=== PATIENT | female | born 1945 | race Caucasian/White ===

== ENCOUNTER 2016-11-22 15:35 | Outpatient (CLI) | payer MEDICARE | END 2016-11-22 15:36 | disposition home or self-care (01) | DX: I10 Essential (primary) hypertension (principal); E78.5 Hyperlipidemia, unspecified; R53.83 Other fatigue ==

== ENCOUNTER 2016-12-28 07:18 | Outpatient (CLI) | payer MEDICARE | END 2016-12-28 07:19 | disposition home or self-care (01) | LOC: LAB.WCP 07:18 | PROVIDERS: ATTEND Family Medicine | DX: R82.99 Other abnormal findings in urine (principal) | CPT/HCPCS: 87086 ==

== ENCOUNTER 2017-03-23 10:08 | Outpatient (CLI) | payer MEDICARE | END 2017-03-23 10:09 | disposition home or self-care (01) | DX: Z12.31 Encounter for screening mammogram for malignant neoplasm of breast (principal) ==

== ENCOUNTER 2018-04-16 18:19 | Emergency (ER) | payer OTHER, MEDICARE ==
[2018-04-16 19:11] LABS: BILIRUBIN,URINE NEGATIVE (NEGATIVE); GLUCOSE, URINE (UA) NEGATIVE (NEGATIVE); KETONES,URINE (UA) NEGATIVE (NEGATIVE); LEUKOCYTE ESTERASE, URINE NEGATIVE (NEGATIVE); NITRITE,URINE NEGATIVE (NEGATIVE); OCCULT BLOOD,URINE NEGATIVE (NEGATIVE); PH,URINE 5.5 PH (5.0-7.5); PROTEIN,URINE NEGATIVE (NEGATIVE); UROBILINOGEN,URINE 0.2 (NORMAL) E.U./dL (NORMAL)
[2018-04-16 19:13] LABS: CLARITY,URINE CLEAR (CLEAR)
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
[2018-04-16 19:25] LABS: BASOPHILS % (AUTO) 0.7 %; EOSINOPHILS % (AUTO) 4.5 %; HGB - HEMOGLOBIN 14.4 g/dL (12.0-16.0); LYMPHOCYTES % (AUTO) 58.4 %; MEAN CORPUSCULAR HEMOGLOBIN 29.4 pg (27.0-31.0); MEAN CORPUSCULAR HGB CONC 32.7 g/dL (32.0-36.0); MEAN CORPUSCULAR VOLUME 89.9 fL (81.0-99.0); MEAN PLATELET VOLUME 7.5 fL (7.9-10.8); MONOCYTES % (AUTO) 6.4 %; PLT - PLATELET COUNT 280 10^3/uL (130-450); RED CELL DISTRIBUTION WIDTH 14.2 % (12.0-15.0); WHITE BLOOD COUNT 7.9 x10^3/uL (4.8-10.8)
[2018-04-16 19:32] LABS: ABNORMAL LYMPHS % (MANUAL) 0 %; BAND NEUTROPHILS % (MANUAL) 0 %
[2018-04-16 19:43] LABS: ALBUMIN 4.1 g/dL (3.2-5.5); ALBUMIN/GLOBULIN RATIO 1.5 (1.0-2.2); BILIRUBIN,TOTAL 0.7 mg/dL (0.2-1.0); CREATININE 0.6 mg/dL (0.4-1.0); TOTAL PROTEIN 6.8 g/dL (6.7-8.2)
--- NOTE | 2018-04-16 19:46 | CT Preliminary Report ---
Exam: CT HEAD W/O IMPRESSION: Mild chronic senescent changes. No acute intracranial abnormality seen. [facility] SITE ID: [id number]
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
[2018-04-16 20:19] VITALS: BP 125/65
[2018-04-16 20:29] LABS: BASOPHILS # (MANUAL) 0.1 10^3/uL (0-0.1); BASOPHILS % (MANUAL) 1 %; EOSINOPHILS # (MANUAL) 0.7 10^3/uL (0-0.7); LYMPHOCYTES # (MANUAL) 5.1 10^3/uL (1.5-3.5); LYMPHOCYTES % (MANUAL) 42 %; MONOCYTES # (MANUAL) 0.2 10^3/uL (0.0-1.0); NEUTROPHILS # (MANUAL) 1.9 10^3/uL (1.5-6.6); NEUTROPHILS % (MANUAL) 24 %
[2018-04-16 20:30] LABS: DIFFERENTIAL COMMENT MANUAL DIFFERENTIAL; PLATELET ESTIMATE, MANUAL NORMAL (130-450,000) (NORMAL); PLATELET MORPHOLOGY NORMAL APPEARANCE (NORMAL); RBC MORPHOLOGY (MULTIPLE) NORMAL APPEARANCE (NORMAL)
== END 2018-04-16 20:20 | disposition home or self-care (01) ==
LOC: ED 18:19
DX: R51 Headache (principal); M54.2 Cervicalgia; H92.01 Otalgia, right ear; V49.40XA Driver injured in collision with unspecified motor vehicles in traffic accident, initial encounter; E86.0 Dehydration; I10 Essential (primary) hypertension
CPT/HCPCS: 36415; 70450; 80053; 81001; 81003; 83690; 85025; 87086; 99283

== ENCOUNTER 2018-08-22 10:07 | Outpatient (CLI) | payer MEDICARE ==
--- NOTE | 2018-08-26 15:59 | Mammography Report ---
Reason: MAMMO SCREENING Procedure Date: 08/22/2018 Accession Number: [id number] / [id number] Procedure: MGN - Screening Mammo Dig Bilat CPT Code: FULL RESULT: EXAM: Screening Mammo Dig Bilat DATE: 08/22/2018 10:29 AM CLINICAL HISTORY: 73-year-old female presents for screening mammogram. TECHNIQUE: Bilateral CC and MLO views were obtained. COMPARISON: 03/23/2017, 02/05/2015, 01/25/2015, 11/10/2013. FINDINGS: The breasts demonstrate heterogeneously dense fibroglandular parenchyma bilaterally. No suspicious masses, clustered microcalcifications, or regions of architectural distortion are identified. IMPRESSION: Negative examination RECOMMENDATION: Routine annual screening unless otherwise clinically indicated. BIRADS CATEGORY 1: Negative STANDARD QUALIFYING STATEMENTS: 1. This examination was reviewed with the aid of Computer-Aided Detection (CAD). 2. A negative or benign imaging report should not delay biopsy if clinically suspicious findings are present. Consider surgical consultation if warrented. More than 5% of cancers are not identified by imaging. 3. Dense breasts may obscure an underlying neoplasm. 4. This examination was reviewed without the aid of 3D breast imaging (tomosynthesis).
== END 2018-08-22 10:08 | disposition home or self-care (01) ==
LOC: DI.N 10:07
DX: Z12.31 Encounter for screening mammogram for malignant neoplasm of breast (principal)
CPT/HCPCS: 77067

== ENCOUNTER 2019-06-17 08:29 | Outpatient (CLI) | payer MEDICARE ==
--- NOTE | 2019-06-18 04:26 | Ultrasound Report ---
Reason: ACUTE PELVIC PAIN, POSTMENOPAUSAL BLEEDING Procedure Date: 06/17/2019 Accession Number: [id number] / [id number] Procedure: US - Pelvic w/Transvaginal CPT Code: FULL RESULT: EXAM: PELVIC ULTRASOUND EXAM DATE: 06/17/2019 09:57 AM. CLINICAL HISTORY: ACUTE PELVIC PAIN, POSTMENOPAUSAL BLEEDING. COMPARISON: None. TECHNIQUE: Realtime transabdominal pelvic scan performed to identify the uterus and adnexa and as an overview of other pelvic structures, followed by transvaginal scan to provide greater detail of the uterus and adnexa, with static image documentation. FINDINGS: Uterus: 5.9 x 3.7 x 4.2 cm, volume 49.9 cc. Anteverted position. Heterogeneous uterus with anterior fibroid measuring 1.3 x 1.0 x 1.9 cm. Masses: None. Endometrium: 10 mm. Thickened for age. Cervix: Unremarkable. Right Ovary: 2.4 x 1.6 x 1.1 cm, volume 2.2 cc. Normal echotexture and blood flow. Left Ovary: 2.4 x 2.0 x 1.4 cm, volume 3.5 cc. Normal echotexture and blood flow. Free Fluid: No significant free fluid evident on provided images. Other: None. IMPRESSION: 1. Thickened endometrium measuring approximately 10 mm. In the setting of postmenopausal bleeding, endometrial hyperplasia or carcinoma cannot be excluded. Recommend further workup. 2. Heterogeneous uterus with fibroid measuring 1.9 cm. 3. Unremarkable ovaries. [facility]
== END 2019-06-17 08:30 | disposition home or self-care (01) ==
LOC: DI 08:29
PROVIDERS: ATTEND Nurse Practitioner Obstetrics & Gynecology
DX: N95.0 Postmenopausal bleeding (principal); R10.2 Pelvic and perineal pain; D25.9 Leiomyoma of uterus, unspecified; R93.89 Abnormal findings on diagnostic imaging of other specified body structures
CPT/HCPCS: 76830; 76856

== ENCOUNTER 2019-07-07 08:00 | Outpatient (CLI) | payer MEDICARE | END 2019-07-07 23:59 | disposition home or self-care (01) | LOC: LAB.R 08:00 | PROVIDERS: ATTEND Family Medicine | DX: R31.9 Hematuria, unspecified (principal) | CPT/HCPCS: 87086 ==

== ENCOUNTER 2019-07-23 13:06 | Outpatient (CLI) | payer MEDICARE ==
--- NOTE | 2019-07-28 12:28 | Ultrasound Report ---
Reason: SUBCUTANEOUS NODULE Procedure Date: 07/23/2019 Accession Number: [id number] / [id number] Procedure: US - Ext Limited Non Vascular CPT Code: FULL RESULT: EXAM: RIGHT UPPER AND LOWER EXTREMITY ULTRASOUND - LIMITED EXAM DATE: 07/23/2019 01:39 PM. CLINICAL HISTORY: SUBCUTANEOUS NODULES. COMPARISON: None. TECHNIQUE: Real-time scanning was performed with static images obtained. FINDINGS: 5 nodules are scanned: 1. Right medial forearm: 1.3 x 0.6 x 1.8 cm isoechoic well-circumscribed avascular subcutaneous nodule, likely a lipoma. 2. Right superior lateral thigh: 1 x 0.7 x 0.9 cm isoechoic to slightly hypoechoic indistinct avascular nodule. 3. Right superior medial thigh: 2 x 0.8 x 1.3 cm isoechoic, avascular, fairly well-circumscribed superficial nodule. 4. Right Inferior lateral thigh 1.5 x 1.2 x 2 cm heterogeneous predominantly isoechoic, avascular, fairly well-circumscribed superficial nodule. 5. Right inferior medial thigh 0.8 x 0.8 x 1.5 cm isoechoic avascular slightly indistinct superficial nodule. IMPRESSION: Multiple nodules in the right forearm and thigh are of grossly similar ultrasound appearance. 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 Suggest clinical follow-up. [facility]
== END 2019-07-23 13:07 | disposition home or self-care (01) ==
LOC: DI 13:06
PROVIDERS: ATTEND Family Medicine
DX: R22.31 Localized swelling, mass and lump, right upper limb (principal); R22.41 Localized swelling, mass and lump, right lower limb
CPT/HCPCS: 76882

== ENCOUNTER 2019-10-13 11:20 | Outpatient (CLI) | payer MEDICARE ==
--- NOTE | 2019-10-13 12:35 | Mammography Report ---
Reason: ROUTINE MAMMO Procedure Date: 10/13/2019 Accession Number: [id number] / [id number] Procedure: MGN - Screening Mammo Dig Bilat CPT Code: Final Report FULL RESULT: EXAM: Screening Mammo Dig Bilat DATE: 10/13/2019 11:52 AM CLINICAL HISTORY: The patient is an asymptomatic 74-year-old female. Second degree family history of breast cancer. TECHNIQUE: (B) - Bilateral CC and MLO views were obtained. COMPARISON: 08/22/2018, 03/23/2017, 02/05/2015 and 01/25/2015 PARENCHYMAL PATTERN: (D) - The breasts demonstrate heterogeneously dense fibroglandular parenchyma bilaterally. FINDINGS: The pattern of asymmetry is stable given positional variation. There are no suspicious masses, calcifications, or areas of distortion. IMPRESSION: Negative examination. BI-RADS category 1. RECOMMENDATION: (ANNUAL) - Recommend routine annual screening mammography. BI-RADS CATEGORY: (1) - Negative. STANDARD QUALIFYING STATEMENTS: 1. This examination was not reviewed with the aid of Computer-Aided Detection (CAD). 2. A negative or benign imaging report should not preclude biopsy if clinically suspicious findings are present. 3. Dense breasts may obscure an underlying neoplasm. 4. This examination was reviewed the aid of 3D breast imaging (tomosynthesis).
== END 2019-10-13 11:21 | disposition home or self-care (01) ==
LOC: DI.N 11:20
DX: Z12.31 Encounter for screening mammogram for malignant neoplasm of breast (principal); Z80.3 Family history of malignant neoplasm of breast
CPT/HCPCS: 77067

== ENCOUNTER 2019-11-22 08:17 | Outpatient (CLI) | payer MEDICARE ==
--- NOTE | 2019-11-24 01:35 | Ultrasound Report ---
Reason: POSTMENOPAUSAL BLEEDING Procedure Date: 11/22/2019 Accession Number: [id number] / [id number] Procedure: US - Pelvic w/Transvaginal CPT Code: Final Report FULL RESULT: EXAM: PELVIC ULTRASOUND EXAM DATE: 11/22/2019 09:10 AM. CLINICAL HISTORY: POSTMENOPAUSAL BLEEDING. COMPARISON: PELVIC W/TRANSVAGINAL 06/17/2019 8:50 AM. TECHNIQUE: Realtime transabdominal pelvic scan performed to identify the uterus and adnexa and as an overview of other pelvic structures, followed by transvaginal scan to provide greater detail of the uterus and adnexa, with static image documentation. FINDINGS: Uterus: 5.5 x 3.2 x 4.8 cm, volume 42.3 cc. Anteverted position. Heterogeneous and echotexture. Masses: Intermural fibroid measuring 0.6 x 1.0 x 1.4 cm located in the anterior uterus. Endometrium: 7 mm. Normal. Cervix: Unremarkable. Right Ovary: 1.9 x 1.9 x 1.5 cm, volume 2.8 cc. Normal echotexture and blood flow. Left Ovary: 1.9 x 1.3 x 1.6 cm, volume 1.9 cc. Normal echotexture and blood flow. Free Fluid: None. Other: None. IMPRESSION: Thickened endometrium. Endometrial biopsy should be considered. Uterine fibroid. [facility]
== END 2019-11-22 08:18 | disposition home or self-care (01) ==
LOC: DI 08:17
PROVIDERS: ATTEND Nurse Practitioner Obstetrics & Gynecology
DX: D25.1 Intramural leiomyoma of uterus (principal); R93.89 Abnormal findings on diagnostic imaging of other specified body structures
CPT/HCPCS: 76830; 76856

== ENCOUNTER 2019-12-26 08:00 | Outpatient (CLI) | payer MEDICARE ==
[2019-12-26 12:44] LABS: BASOPHILS % (AUTO) 0.5 %; EOSINOPHILS # (AUTO) 0.3 10^3/uL (0.0-0.7); EOSINOPHILS % (AUTO) 4.6 %; HGB - HEMOGLOBIN 15.2 g/dL (12.0-16.0); LYMPHOCYTES # (AUTO) 3.2 10^3/uL (1.5-3.5); LYMPHOCYTES % (AUTO) 55.8 %; MEAN CORPUSCULAR HEMOGLOBIN 29.4 pg (27.0-31.0); MEAN CORPUSCULAR HGB CONC 32.1 g/dL (32.0-36.0); MEAN CORPUSCULAR VOLUME 91.7 fL (81.0-99.0); MEAN PLATELET VOLUME 9.9 fL (7.9-10.8); MONOCYTES # (AUTO) 0.5 10^3/uL (0.0-1.0); MONOCYTES % (AUTO) 7.9 %; NEUTROPHILS # (AUTO) 1.8 10^3/uL (1.5-6.6); NEUTROPHILS % (AUTO) 30.9 %; PLT - PLATELET COUNT 286 10^3/uL (130-450); RED BLOOD COUNT 5.17 10^6/uL (4.20-5.40); RED CELL DISTRIBUTION WIDTH 13.8 % (12.0-15.0); WHITE BLOOD COUNT 5.8 x10^3/uL (4.8-10.8)
[2019-12-26 13:05] LABS: ALBUMIN/GLOBULIN RATIO 1.4 (1.0-2.2); BILIRUBIN,TOTAL 0.7 mg/dL (0.2-1.0); CREATININE 0.7 mg/dL (0.4-1.0); TOTAL PROTEIN 6.9 g/dL (6.7-8.2)
== END 2019-12-26 23:59 | disposition home or self-care (01) ==
LOC: LAB.WCP 08:00
PROVIDERS: ATTEND Family Medicine
DX: R10.31 Right lower quadrant pain (principal)
CPT/HCPCS: 36415; 80053; 85025

== ENCOUNTER 2019-12-30 11:50 | Outpatient (CLI) | payer MEDICARE ==
[2019-12-30] MEDS ORDERED: IOVERSOL 320 100 ML VIAL IVP ONE ×2 (12:04→13:17)
[2019-12-30] MEDS ORDERED: IOVERSOL 320 50 ML VIAL ONE (12:04)
[2019-12-30] MEDS ORDERED: IOVERSOL 320 50 ML VIAL PO ONE (13:17)
--- NOTE | 2019-12-31 11:00 | CT Report ---
Reason: RLQ ABD PAIN Procedure Date: 12/30/2019 Accession Number: [id number] / [id number] Procedure: CT - Abdomen/Pelvis W CPT Code: Final Report FULL RESULT: EXAM: CT ABDOMEN AND PELVIS EXAM DATE: 12/30/2019 01:10 PM. CLINICAL HISTORY: RLQ ABD PAIN. COMPARISONS: PELVIC W/TRANSVAGINAL 11/22/2019 8:32 AM PELVIS W/ 02/18/2016 9:30 AM ABD 04/08/2010 8:12 AM. TECHNIQUE: Routine helical CT imaging was performed through the abdomen and pelvis. IV contrast: 100 cc of Optiray 320. Enteric contrast: Yes. Reconstructions: Coronal and sagittal. In accordance with CT protocol optimization, one or more of the following dose reduction techniques were utilized for this exam: automated exposure control, adjustment of mA and/or KV based on patient size, or use of iterative reconstructive technique. FINDINGS: Lung Bases: Dependent atelectasis. No pleural or pericardial effusion. Small incidental hiatal hernia. Liver: No solid liver mass or intrahepatic bile duct dilation. Multiple low-density liver cysts scattered throughout both lobes. Portal vein is patent. No intrahepatic bile duct dilation. Gallbladder/Bile Ducts: Unremarkable. Spleen: Normal. Pancreas: Normal. Adrenal Glands: Normal. Kidneys: No mass, stones or hydronephrosis. Exophytic 2.1 cm inferior left renal cyst. Peritoneal Cavity/Bowel: Normal. No free fluid, free air or adenopathy. No masses or acute inflammatory process. There are multiple diverticula seen which most severely affect the sigmoid colon. No wall thickening or adjacent inflammation seen. No obstruction noted. The appendix is well visualized and normal. Remaining stomach, small bowel and large bowel are normal. Pelvic Organs: Normal. The bladder and visualized pelvic organs are within normal limits. Vasculature: Patchy atheromatous plaques are present in the abdominal aorta and branch vessels. No aneurysm. Normal IVC. Bones: No significant abnormality. Other: None. IMPRESSION: 1. Diverticulosis. No inflammation to suggest acute diverticulitis. 2. Normal appendix. [facility]
== END 2019-12-30 11:51 | disposition home or self-care (01) ==
LOC: DI 11:50
PROVIDERS: ATTEND Family Medicine
DX: K57.30 Diverticulosis of large intestine without perforation or abscess without bleeding (principal); R10.31 Right lower quadrant pain
CPT/HCPCS: 74177; Q9967

== ENCOUNTER 2020-01-06 16:24 | Outpatient (CLI) | payer MEDICARE ==
[2020-01-06 16:57] LABS: BASOPHILS % (AUTO) 0.6 %; EOSINOPHILS # (AUTO) 0.2 10^3/uL (0.0-0.7); EOSINOPHILS % (AUTO) 3.3 %; HGB - HEMOGLOBIN 14.3 g/dL (12.0-16.0); LYMPHOCYTES # (AUTO) 3.4 10^3/uL (1.5-3.5); LYMPHOCYTES % (AUTO) 52.9 %; MEAN CORPUSCULAR HEMOGLOBIN 30.9 pg (27.0-31.0); MEAN CORPUSCULAR HGB CONC 33.2 g/dL (32.0-36.0); MEAN CORPUSCULAR VOLUME 93.1 fL (81.0-99.0); MEAN PLATELET VOLUME 9.9 fL (7.9-10.8); MONOCYTES # (AUTO) 0.4 10^3/uL (0.0-1.0); MONOCYTES % (AUTO) 6.6 %; NEUTROPHILS # (AUTO) 2.3 10^3/uL (1.5-6.6); NEUTROPHILS % (AUTO) 36.4 %; PLT - PLATELET COUNT 277 10^3/uL (130-450); RED BLOOD COUNT 4.63 10^6/uL (4.20-5.40); RED CELL DISTRIBUTION WIDTH 13.7 % (12.0-15.0); WHITE BLOOD COUNT 6.4 x10^3/uL (4.8-10.8)
[2020-01-06 17:16] LABS: ALBUMIN/GLOBULIN RATIO 1.5 (1.0-2.2); BILIRUBIN,TOTAL 0.4 mg/dL (0.2-1.0); CALCIUM 10.2 mg/dL (8.5-10.3); CREATININE 0.7 mg/dL (0.4-1.0); TOTAL PROTEIN 6.7 g/dL (6.7-8.2)
== END 2020-01-06 16:25 | disposition home or self-care (01) ==
LOC: LAB 16:24
PROVIDERS: ATTEND Obstetrics & Gynecology
DX: Z01.812 Encounter for preprocedural laboratory examination (principal); N95.0 Postmenopausal bleeding; N85.00 Endometrial hyperplasia, unspecified
CPT/HCPCS: 36415; 80053; 85025; 86850; 86900; 86901

== ENCOUNTER 2020-01-07 10:55 | Day surgery (SDC) | payer MEDICARE ==
[~2020-01-07 10:55] MED LIST: ACETAMINOPHEN 1,000 MG/100 ML 100 ML IV ONE; CEFAZOLIN SODIUM IN 0.9 % NACL 2 GM/100 ML BAG IV ONE; CELECOXIB 100 MG CAPSULE PO ONE
[2020-01-07] MEDS ORDERED: fentaNYL 100 MCG/2 ML VIAL IVP ONE (10:56)
[2020-01-07] MEDS ORDERED: PROPOFOL 200 MG/20 ML VIAL IVP ONE (10:56)
[2020-01-07] MEDS ORDERED: LIDOCAINE-MPF 2% 5 ML VIAL IM ONE (10:56)
[2020-01-07] MEDS ORDERED: LACTATED RINGERS 1,000 ML IV ONE ×2 (10:59→13:40)
--- NOTE | 2020-01-07 11:35 | ANESTHESIA ---
Pre-Anesthesia VS, & Labs - Diagnosis Post menopausal bleeding - Procedure Myosure D and C Vital Signs: Temp Pulse Resp BP Pulse Ox 36.7 C 66 66 H 136/77 H 98 01/07/20 11:06 01/07/20 11:06 01/07/20 11:06 01/07/20 11:06 01/07/20 11:06 Height 5 ft 2 in Weight (kg) 75 kg Body Mass Index 31.6 - NPO >8 hours (4 oz water at 0900) - Is Patient ?: No - Lab Results Lab results reviewed: Yes Home Medications and Allergies Home Medications: Ambulatory Orders [place] Tablet 1 tab PO DAILY 01/06/20 Cholecalciferol (Vitamin D3) [Vitamin D3] 1,000 unit PO DAILY 01/06/20 Flavomax 1 tab PO DAILY 01/06/20 Nutriferon 1 tab PO DAILY 01/06/20 hydroCHLOROthiazide [Hydrochlorothiazide] 25 mg PO DAILY 04/29/14 Losartan [Cozaar] 50 mg ORAL DAILY 02/22/15 Metoprolol Succinate 50 mg ORAL DAILY 02/22/15 ALPRAZolam [Alprazolam] 0.25 - 0.5 mg PO DAILY 10/11/18 Ascorbic Acid [Vitamin C] 1,000 mg PO DAILY 10/11/18 Calcium Carbonate [Calcium] 1,200 mg PO DAILY 10/11/18 Lecithin, Soy [Lecithin] 1 tab PO DAILY 10/11/18 Magnesium Oxide [Magnesium] 400 mg PO DAILY 10/11/18 Multivit with Calcium,Iron,Min [Multiple Vitamins For Women] 1 tab PO DAILY 10/11/18 [place]-3S/Dha/Epa/Fish Oil [Fish Oil 1,200 mg Softgel] 1 cap PO DAILY 10/11/18 Vitamin B Complex 1 tab PO DAILY 10/11/18 [place] Tablet 1 tab PO DAILY 01/06/20 Cholecalciferol (Vitamin D3) [Vitamin D3] 1,000 unit PO DAILY 01/06/20 Flavomax 1 tab PO DAILY 01/06/20 Nutriferon 1 tab PO DAILY 01/06/20 Allergies/Adverse Reactions: Allergies Allergy/AdvReac Type Severity Reaction Status Date / Time aspirin AdvReac gastric Verified 01/06/20 16:16 distress Anes History & Medical History - Anesthetic History Anesthesia Complications: reports: No previous complications Family history of Anesthesia Complications: Denies Family history of Malignant Hyperthermia: Denies - Medical History Cardiovascular: reports: Hypertension, Arrhythmia Pulmonary: reports: None Gastrointestinal: reports: None Urinary: reports: Incontinence, Frequency Neuro: reports: None Musculoskeletal: reports: None Endocrine/Autoimmune: reports: None Blood Disorders: reports: None Skin: reports: None Smoking Status: Never smoker Psychosocial: reports: No issues indicated - Surgical History General: Colonoscopy Exam General: Alert, Oriented x3, Cooperative Dental: WNL, TMJ Mouth Opening: Greater than 4 Fingerbreadths Neck Mobility: Reduced (Gets dizzy when turns head, history of left arm numbness (periodically)) Mallampati classification: I, II Thyromental Distance: 4-6 cm Respiratory: Lungs clear Cardiovascular: Regular rate Neurological: Normal speech Mental/Cognitive Status: Alert/Oriented X3 Cognitive Status: Within normal limits Plan Anesthesia Type: General Consent for Procedure(s) Verified and Reviewed: Yes Code Status: Attempt Resuscitation ASA classification: 2-Mild systemic disease Is this case an emergency?: No
[2020-01-07] MEDS ORDERED: BUPIVACAINE 0.25% PF 10 ML VIAL ONE (11:48)
[2020-01-07] MEDS ORDERED: EPINEPHrine 1 MG/ML AMP ONE (11:49)
[2020-01-07] MEDS ORDERED: BUPIVACAINE 0.5% PF 30 ML VIAL ONE (12:17)
[2020-01-07] MEDS ORDERED: LIDOCAINE 1%-EPI 1:100000 20 ML MDV ONE (12:17)
[2020-01-07] MEDS ORDERED: LORazepam 2 MG/ML VIAL IVP PRN (13:46)
[2020-01-07] MEDS ORDERED: oxyCODONE 5 MG TABLET PO PRN (13:46)
[2020-01-07] MEDS ORDERED: ONDANSETRON 4 MG/2 ML VIAL IVP PRN (13:46)
--- NOTE | 2020-01-07 13:50 | OPERATIVE REPORT ---
Operative Report - General Procedure Date: 01/07/20 Planned Procedure: HYSTERSCOPY WITH D&C Pre-Op Diagnosis: POST MENOPAUSEL BLEEDING Procedure Performed: HYSTERSCOPY WITH D&C Post Op Diagnosis: POST MENOPAUSEL BLEEDING - Procedure Note Primary Surgeon: Ehsan Gerber MD Anesthesia Provider: Cralos Gatica CRNA Anesthesia Technique: General LMA Pathology: Endometrial polyp with endometrial currettings IV Fluids (mL): 600 Estimated Blood Loss (mL): 5 Findings: endometrila polyp sounded to 7 cm
[2020-01-07] MEDS ORDERED: oxyCODONE 5 MG TABLET ONE (14:17)
[2020-01-07 14:51] VITALS: BP 102/88
--- NOTE | 2020-01-07 18:15 | OPERATIVE REPORT ---
DATE OF SERVICE: 01/07/2020 Physician: Ehsan Worrell MD PREOPERATIVE DIAGNOSES: Postmenopausal bleeding with thickened endometrium. POSTOPERATIVE DIAGNOSES: Postoperative bleeding with endometrial polyp. PROCEDURE PERFORMED: Hysteroscopy with dilatation and curettage. SURGEON: Ehsan Worrell MD ANESTHESIA: Zhanna Sosa CRNA ANESTHETIC: General via LMA with IV sedation and paracervical block. IV FLUIDS: 600 mL. ESTIMATED BLOOD LOSS: Less than 5 mL. FINDINGS: Upon entering the endometrial cavity, there was evidence of a polyp, which was attached to the wall. It was smooth without evidence of any extra vascularity. The tubes were visualized bilaterally at this time. Uterus sounded to 7 cm and the cervix was then dilated up to 7 mm. PROCEDURE: Following adequate spinal anesthesia, the patient was placed in dorsal lithotomy position in Avni stirrups. At this point, a pelvic examination was performed, which revealed a uterus which appeared to be anterior in orientation. She was then prepped and draped in the usual fashion. A timeout was performed in which concerns were addressed. At this point, a speculum was placed in the vagina. The cervix was visualized, grasped with a single-tooth tenaculum posteriorly and then regrasped anteriorly with a single- tooth tenaculum. The uterosacral ligaments injected with 0.25% Marcaine with 0.5% lidocaine with epinephrine, 20 mL bilaterally. The cervix was then dilated up to 7 mm progressively and the uterus was sounded to 7 cm. A video hysteroscope was introduced, at which time both cornua were visualized as well as an endometrial polyp. This was resected utilizing the MyoSure LITE. There was minimal bleeding. The entire endometrial cavity was sampled in its entirety. At this point, repeat photographs were performed, at which time there was an empty endometrial cavity. The hysteroscope was removed. The deficit of fluid was minimal. The cervix was released from the single-tooth tenaculum. There was no further bleeding noted at this time. The patient tolerated the procedure well and was taken to recovery in stable condition. Sponge and needle counts were correct. TD: 01/07/2020 14:02 MTDD
== END 2020-01-07 10:56 | disposition home or self-care (01) ==
LOC: SDS 10:55
PROVIDERS: ATTEND Obstetrics & Gynecology
PROC: 0UDB8ZX Extraction of Endometrium, Via Natural or Artificial Opening Endoscopic, Diagnostic (ICD-10-PCS; 2020-01-07)
PROC: 0UB98ZZ Excision of Uterus, Via Natural or Artificial Opening Endoscopic (ICD-10-PCS; principal; 2020-01-07 12:30)
DX: N95.0 Postmenopausal bleeding (principal); R93.89 Abnormal findings on diagnostic imaging of other specified body structures; I10 Essential (primary) hypertension; I49.9 Cardiac arrhythmia, unspecified; E78.5 Hyperlipidemia, unspecified; F41.9 Anxiety disorder, unspecified
CPT/HCPCS: 58558; A9270; J0131; J0690; J7120

== ENCOUNTER 2021-02-16 09:15 | Outpatient (CLI) | payer MEDICARE ==
[2021-02-16 12:21] LABS: BASOPHILS % (AUTO) 0.8 %; EOSINOPHILS # (AUTO) 0.3 10^3/uL (0.0-0.7); EOSINOPHILS % (AUTO) 5.6 %; HCT - HEMATOCRIT 45.5 % (37.0-47.0); HGB - HEMOGLOBIN 15.2 g/dL (12.0-16.0); LYMPHOCYTES # (AUTO) 2.8 10^3/uL (1.5-3.5); MEAN CORPUSCULAR HEMOGLOBIN 31.2 pg (27.0-31.0); MEAN CORPUSCULAR HGB CONC 33.4 g/dL (32.0-36.0); MEAN CORPUSCULAR VOLUME 93.4 fL (81.0-99.0); MONOCYTES # (AUTO) 0.4 10^3/uL (0.0-1.0); MONOCYTES % (AUTO) 7.8 %; NEUTROPHILS # (AUTO) 1.6 10^3/uL (1.5-6.6); NEUTROPHILS % (AUTO) 31.6 %; PLT - PLATELET COUNT 268 10^3/uL (130-450); RED BLOOD COUNT 4.87 10^6/uL (4.20-5.40); WHITE BLOOD COUNT 5.2 x10^3/uL (4.8-10.8)
[2021-02-16 12:48] LABS: ALBUMIN 4.1 g/dL (3.2-5.5); ALBUMIN/GLOBULIN RATIO 1.5 (1.0-2.2); ALKALINE PHOSPHATASE 81 IU/L (42-121); ALT ALANINE AMINOTRANSFERASE 20 IU/L (10-60); AST ASPARTATE AMINOTRANSFERASE 21 IU/L (10-42); BILIRUBIN,TOTAL 0.8 mg/dL (0.2-1.0); BUN - BLOOD UREA NITROGEN 23 mg/dL (6-20); CALCIUM 10.5 mg/dL (8.5-10.3); CARBON DIOXIDE - CO2 32 mmol/L (21-32); CHLORIDE 103 mmol/L (101-111); CHOL/HDL RATIO 3.4 (<4.4); CHOLESTEROL 255 mg/dL; CREATININE 0.7 mg/dL (0.4-1.0); GFR - MDRD 82 (>89); GLUCOSE 104 mg/dL (70-100); HDL CHOLESTEROL 74 mg/dL; LDL CHOLESTEROL,CALCULATED 161 mg/dL; LDL/HDL RATIO 2.2 (<4.4); LIPASE 51 U/L (22-51); POTASSIUM 3.7 mmol/L (3.5-5.0); SODIUM 142 mmol/L (135-145); TOTAL PROTEIN 6.9 g/dL (6.7-8.2); TRIGLYCERIDES 102 mg/dL; VLDL CHOLESTEROL 20 mg/dL
== END 2021-02-16 23:59 | disposition home or self-care (01) ==
LOC: LAB.WCP 09:15
PROVIDERS: ATTEND Family Medicine
DX: E78.5 Hyperlipidemia, unspecified (principal); K29.70 Gastritis, unspecified, without bleeding; E83.52 Hypercalcemia; R07.89 Other chest pain
CPT/HCPCS: 36415; 80053; 80061; 83690; 83721; 83970; 84484; 85025

== ENCOUNTER 2021-02-21 11:00 | Outpatient (CLI) | payer MEDICARE ==
[2021-02-21 20:09] LABS: H. PYLORIS ANTIGEN STL NEGATIVE (Negative)
== END 2021-02-21 23:59 | disposition home or self-care (01) ==
LOC: LAB.R 11:00
PROVIDERS: ATTEND Family Medicine
DX: K29.70 Gastritis, unspecified, without bleeding (principal)
CPT/HCPCS: 87338

== ENCOUNTER 2021-03-01 08:24 | Outpatient (CLI) | payer MEDICARE, OTHER ==
--- NOTE | 2021-03-02 13:22 | Mammography Report ---
BILATERAL DIGITAL SCREENING MAMMOGRAM 3D/2D: 03/01/2021 CLINICAL: Family history of breast cancer. Routine screening. Comparison is made to exams dated: 10/13/2019 mammogram, 08/22/2018 mammogram, and 03/23/2017 mammogram - [facility]. The tissue of both breasts is heterogeneously dense. This may lower the sensitivity of mammography. No significant masses, calcifications, or other findings are seen in either breast. There has been no significant interval change. IMPRESSION: NEGATIVE There is no mammographic evidence of malignancy. A 1 year screening mammogram is recommended. This exam was interpreted at Station ID: [id number]. NOTE: For mammograms, a report in lay terms will be sent to the patient. Approximately 15% of breast malignancies will not be visualized mammographically. In the management of a palpable breast mass, a negative mammogram must not discourage biopsy of a clinically suspicious lesion. Electronically Signed By: Ko Blanco M.D. ar/penrad:03/01/2021 09:28:34 ACR BI-RADS Category 1: Negative 3341F PARENCHYMAL PATTERN: (D) - The breast(s) demonstrate(s) heterogeneously dense fibroglandular parrey sena. BI-RADS CATEGORY: (1) - 1 RECOMMENDATION: (ANNUAL) - Recommend routine annual screening mammography. [id number] 1 year screening LATERALITY: (B)
== END 2021-03-01 08:25 | disposition home or self-care (01) ==
LOC: DI.N 08:24
DX: Z12.31 Encounter for screening mammogram for malignant neoplasm of breast (principal); Z80.3 Family history of malignant neoplasm of breast

== ENCOUNTER 2021-05-30 12:33 | Outpatient (CLI) | payer MEDICARE, OTHER ==
--- NOTE | 2021-05-30 15:24 | XRAY Report ---
PROCEDURE: Wrist 3 View RT INDICATIONS: TENDONITIS OF R WRIST TECHNIQUE: 3 views of the wrist were acquired. COMPARISON: None FINDINGS: Bones: No fractures or dislocations. Possible erosion in the base of the fifth metacarpal. Mild firs t CMC joint osteoarthritis. Soft tissues: No suspicious soft tissue calcifications. IMPRESSION: Possible osseous erosion involving the base of the fifth metacarpal. Recommend plain film radiographs of the right hand and/or MRI of the right wrist for further evaluation. Reviewed by: Chantell Wills MD, PhD on 05/30/2021 3:22 PM PDT Approved by: Chantell Wills MD, PhD on 05/30/2021 3:22 PM PDT Station ID: [id number]
== END 2021-05-30 23:59 | disposition home or self-care (01) ==
LOC: DI.N 12:33
PROVIDERS: ATTEND Physician Assistant Medical
DX: M67.833 Other specified disorders of tendon, right wrist (principal); R93.6 Abnormal findings on diagnostic imaging of limbs

== ENCOUNTER 2021-05-31 11:34 | Outpatient (CLI) | payer MEDICARE, OTHER ==
--- NOTE | 2021-05-31 18:31 | XRAY Report ---
PROCEDURE: Hand 2 View RT INDICATIONS: TENDONITIS OF R WRIST, 5TH METACARPAL IRREGULARITY TECHNIQUE: 2 views of the hand(s) acquired. COMPARISON: Correlation is made with the right wrist plain films, 05/30/2021. FINDINGS: Bones: No fractures or dislocations. Again seen an osseous erosion along the base of the fifth meta carpal along its ulnar aspect. Focal degenerative change is seen involving the carpometacarpal joint, with milder degenerative merino es seen elsewhere. Soft tissues: No suspicious soft tissue calcifications. IMPRESSION: These plain film findings are most compatible with a combination of rheumatoid arthritis and osteoart hritis. Reviewed by: Marcos Acharya MD on 05/31/2021 5:30 PM J[facility] Approved by: Marcos Acharya MD on 05/31/2021 5:30 PM JOHNSON Station ID: [id number]
== END 2021-05-31 11:35 | disposition home or self-care (01) ==
LOC: DI.N 11:34
PROVIDERS: ATTEND Physician Assistant Medical
DX: M67.833 Other specified disorders of tendon, right wrist (principal); M19.041 Primary osteoarthritis, right hand; M06.9 Rheumatoid arthritis, unspecified

== ENCOUNTER 2021-11-23 08:00 | Outpatient (CLI) | payer MEDICARE ==
[2021-11-23 13:33] LABS: HCT - HEMATOCRIT 45.2 % (37.0-47.0); HGB - HEMOGLOBIN 15.4 g/dL (12.0-16.0); MEAN CORPUSCULAR HEMOGLOBIN 31.2 pg (27.0-31.0); MEAN CORPUSCULAR HGB CONC 34.1 g/dL (32.0-36.0); MEAN CORPUSCULAR VOLUME 91.7 fL (81.0-99.0); MEAN PLATELET VOLUME 9.9 fL (7.9-10.8); RED BLOOD COUNT 4.93 10^6/uL (4.20-5.40); RED CELL DISTRIBUTION WIDTH 14.1 % (12.0-15.0); WHITE BLOOD COUNT 5.2 x10^3/uL (4.8-10.8)
[2021-11-23 13:59] LABS: % IRON SATURATION 26 % (20-50); ALBUMIN/GLOBULIN RATIO 1.5 (1.0-2.2); ALKALINE PHOSPHATASE 83 IU/L (42-121); ALT ALANINE AMINOTRANSFERASE 22 IU/L (10-60); AST ASPARTATE AMINOTRANSFERASE 24 IU/L (10-42); BILIRUBIN,TOTAL 0.5 mg/dL (0.2-1.0); BUN - BLOOD UREA NITROGEN 18 mg/dL (6-20); CALCIUM 10.5 mg/dL (8.5-10.3); CARBON DIOXIDE - CO2 30 mmol/L (21-32); CHLORIDE 103 mmol/L (101-111); CHOL/HDL RATIO 3.3 (<4.4); CHOLESTEROL 278 mg/dL; CREATININE 0.7 mg/dL (0.4-1.0); GFR - MDRD 82 (>89); GLUCOSE 106 mg/dL (70-100); HDL CHOLESTEROL 84 mg/dL; IRON 109 ug/dL (28-170); LDL CHOLESTEROL,CALCULATED 181 mg/dL; LDL/HDL RATIO 2.2 (<4.4); POTASSIUM 3.9 mmol/L (3.5-5.0); SODIUM 140 mmol/L (135-145); TOTAL IRON BINDING CAPACITY 426 ug/dL (250-450); TOTAL PROTEIN 6.7 g/dL (6.7-8.2); TRANSFERRIN 304 mg/dL (192-382); TRIGLYCERIDES 64 mg/dL; VLDL CHOLESTEROL 13 mg/dL
[2021-11-23 19:47] LABS: ESTIMATED AVERAGE GLUCOSE 114 mg/dL (70-100); HEMOGLOBIN A1c% 5.6 % (4.27-6.07)
== END 2021-11-23 23:59 | disposition home or self-care (01) ==
LOC: LAB.WCP 08:00
PROVIDERS: ATTEND Family Medicine
DX: E78.5 Hyperlipidemia, unspecified (principal); E83.52 Hypercalcemia; D64.9 Anemia, unspecified; R73.9 Hyperglycemia, unspecified
CPT/HCPCS: 36415; 80053; 80061; 81599; 82306; 82330; 82728; 83036; 83519; 83540; 83721; 84466; 85027

== ENCOUNTER 2022-01-12 10:39 | Outpatient (CLI) | payer MEDICARE ==
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
== END 2022-01-12 10:40 | disposition home or self-care (01) ==
LOC: DI.N 10:39
PROVIDERS: ATTEND Family Medicine
DX: M70.62 Trochanteric bursitis, left hip (principal); M16.0 Bilateral primary osteoarthritis of hip

== ENCOUNTER 2022-01-21 10:30 | Emergency (ER) | payer MEDICARE ==
[2022-01-21 10:50] LABS: BASOPHILS # (AUTO) 0.1 10^3/uL (0.0-0.1); BASOPHILS % (AUTO) 0.7 %; EOSINOPHILS # (AUTO) 0.3 10^3/uL (0.0-0.7); HCT - HEMATOCRIT 46.7 % (37.0-47.0); HGB - HEMOGLOBIN 15.7 g/dL (12.0-16.0); LYMPHOCYTES % (AUTO) 60.8 %; MEAN CORPUSCULAR HEMOGLOBIN 30.4 pg (27.0-31.0); MEAN CORPUSCULAR HGB CONC 33.6 g/dL (32.0-36.0); MEAN CORPUSCULAR VOLUME 90.3 fL (81.0-99.0); MEAN PLATELET VOLUME 9.2 fL (7.9-10.8); MONOCYTES # (AUTO) 0.4 10^3/uL (0.0-1.0); MONOCYTES % (AUTO) 5.1 %; NEUTROPHILS # (AUTO) 2.5 10^3/uL (1.5-6.6); NEUTROPHILS % (AUTO) 30.3 %; PLT - PLATELET COUNT 280 10^3/uL (130-450); RED BLOOD COUNT 5.17 10^6/uL (4.20-5.40); RED CELL DISTRIBUTION WIDTH 13.5 % (12.0-15.0); WHITE BLOOD COUNT 8.2 x10^3/uL (4.8-10.8)
--- NOTE | 2022-01-21 11:02 | ED Physician Documentation ---
PD HPI CHEST PAIN - Stated complaint Stated Complaint: CHEST/RT ARM PX/DIZZY - Chief complaint Chief Complaint: Cardiac - History obtained from History obtained from: Patient - History of Present Illness Timing - onset: How many days ago (2-3) Timing - onset during: Light activity Timing - duration: Days (2-3) Timing - details: Gradual onset, Still present, Waxing and waning Quality: Aching, Pain Location: Right chest, Right shoulder/arm Radiation: Back (right scapular) Associated symptoms: Feeling faint / dizzy, Other (some vertigo with lying flat. No visual changes. No focal weakness nor ataxia.). No: Shortness of air, Diaphoresis, Nausea Similar symptoms before: Has not had sx before Recently seen: Not recently seen Review of Systems Constitutional: reports: Fatigue. denies: Fever, Chills Ears: reports: Other (some vertigo with lying flat at times.). denies: Ear pain, Drainage/discharge, Tinnitus/ringing Nose: denies: Rhinorrhea / runny nose, Congestion Throat: denies: Sore throat Cardiac: reports: Chest pain / pressure. denies: Palpitations, Pedal edema, Calf pain Respiratory: denies: Dyspnea, Cough GI: denies: Abdominal Pain, Nausea, Vomiting, Diarrhea Skin: denies: Rash, Lesions PD PAST MEDICAL HISTORY - Past Medical History Past Medical History: Yes Cardiovascular: Hypertension, Arrhythmia Respiratory: None Neuro: None Endocrine/Autoimmune: None GI: None : Incontinence, Frequency HEENT: Chronic vision loss Musculoskeletal: None Derm: None - Past Surgical History Past Surgical History: No - Present Medications Home Medications: Ambulatory Orders Medication Instructions Recorded Confirmed hydroCHLOROthiazide 25 mg PO DAILY 04/29/14 01/07/20 [Hydrochlorothiazide] Losartan [Cozaar] 50 mg ORAL DAILY 02/22/15 01/07/20 Metoprolol Succinate 50 mg ORAL DAILY 02/22/15 01/07/20 ALPRAZolam [Alprazolam] 0.25 - 0.5 mg PO DAILY 10/11/18 01/07/20 Ascorbic Acid [Vitamin C] 1,000 mg PO DAILY 10/11/18 01/07/20 Calcium Carbonate [Calcium] 1,200 mg PO DAILY 10/11/18 01/07/20 Lecithin, Soy [Lecithin] 1 tab PO DAILY 10/11/18 01/07/20 Magnesium Oxide [Magnesium] 400 mg PO DAILY 10/11/18 01/07/20 Multivit with Calcium,Iron,Min 1 tab PO DAILY 10/11/18 01/07/20 [Multiple Vitamins For Women] [place]-3S/Dha/Epa/Fish Oil [Fish 1 cap PO DAILY 10/11/18 01/07/20 Oil 1,200 mg Softgel] Vitamin B Complex 1 tab PO DAILY 10/11/18 01/07/20 [place] Tablet 1 tab PO DAILY 01/06/20 Cholecalciferol (Vitamin D3) 1,000 unit PO DAILY 01/06/20 01/07/20 [Vitamin D3] Flavomax 1 tab PO DAILY 01/06/20 Nutriferon 1 tab PO DAILY 01/06/20 HYDROcod/ACETAM 5/325 [[place] 5/325] 1 ea PO Q6H PRN #15 tablet 01/21/22 Meclizine HCl [Motion Sickness] 25 mg PO Q6H PRN #20 tablet 01/21/22 Valacyclovir HCl [Valtrex] 1,000 mg PO TID 7 Days #20 tablet 01/21/22 dexAMETHasone [Decadron] 4 mg PO DAILY #5 tablet 01/21/22 - Allergies Allergies/Adverse Reactions: Allergies Allergy/AdvReac Type Severity Reaction Status Date / Time aspirin AdvReac gastric Verified 01/21/22 10:40 distress - Social History Does the pt smoke?: No Smoking Status: Never smoker Does the pt have substance abuse?: No - POLST Patient has POLST: No PD ED PE NORMAL - Vitals Vital signs reviewed: Yes - General General: Alert and oriented X 3, Well developed/nourished, Other (she does seem uncomfortable with right chest pain. ) - HEENT HEENT: PERRL, EOMI (mild nystagmus to the right. ), Ears normal, Moist mucous membranes, Pharynx benign - Neck Neck: Supple, no meningeal sign, No adenopathy - Cardiac Cardiac: RRR, No murmur - Respiratory Respiratory: Clear bilaterally, Other (right chest and back skin with several small patches of early vesicular, red based, tender rash in pattern along T5 nerve dermatome.) - Abdomen Abdomen: Soft, Non tender - Back Back: No CVA TTP - Derm Derm: Normal color, Warm and dry - Extremities Extremities: No edema, No calf tenderness / cord - Neuro Neuro: Alert and oriented X 3, No motor deficit, Normal speech Results - Vitals Vitals: Vital Signs - 24 hr 01/21/22 01/21/22 12:00 12:30 Heart Rate 64 65 Respiratory 15 14 Rate Blood Pressure 109/97 H 99/79 O2 Saturation 99 98 Oxygen O2 Source Room air - EKG (time done) 10:34 Rate: Rate (enter#) (83) Rhythm: NSR [place]: Normal Intervals: RBBB (incomplete) QRS: Poor R wave progression Ischemia: Normal ST segments. No: ST elevation c/w ischemia, ST depression - Labs Labs: Laboratory Tests 01/21/22 01/21/22 01/21/22 10:44 10:44 10:44 WBC 8.2 RBC 5.17 Hgb 15.7 Hct 46.7 MCV 90.3 MCH 30.4 MCHC 33.6 RDW 13.5 Plt Count 280 MPV 9.2 Neut # (Auto) 2.5 Lymph # (Auto) 5.0 H [place] # (Auto) 0.4 Eos # (Auto) 0.3 Baso # (Auto) 0.1 Absolute Nucleated RBC 0.00 Nucleated RBC % 0.0 Sodium 140 Potassium 3.6 Chloride 103 Carbon Dioxide 26 Anion Gap 11.0 BUN 14 Creatinine 0.6 Estimated GFR (MDRD) 98 Glucose 125 H Calcium 10.3 Total Bilirubin 0.8 AST 23 ALT 20 Alkaline Phosphatase 90 Troponin I High Sens 4.1 Total Protein 7.1 Albumin 4.2 Globulin 2.9 Albumin/Globulin Ratio 1.4 Lipase 50 - Rads (name of study) chest xray Radiology: Prelim report reviewed (no acute process), See rad report PD MEDICAL DECISION MAKING - ED course Complexity details: reviewed results, considered differential (some positional vertigo when lying flatter without other neuro symptoms. Seems peripheral vertigo. MAin complaint of chest pain seems unrelated as the pain there is shingles. NO signs ACS on testing. ), d/w patient Departure - Departure Disposition: 01 Home, Self Care Clinical Impression: Right-sided chest pain, Vertigo Shingles Qualifiers: Herpes zoster complications: without complications Qualified Code(s): B02.9 - Zoster without complications Condition: Stable Record reviewed to determine appropriate education?: Yes Instructions: ED Shingles Follow-Up: Murphy Rizzo DO [Primary Care Provider] - Prescriptions: dexAMETHasone [Decadron] 4 mg PO DAILY #5 tablet Meclizine HCl [Motion Sickness] 25 mg PO Q6H PRN #20 tablet PRN Reason: Vertigo HYDROcod/ACETAM 5/325 [[place] 5/325] 1 ea PO Q6H PRN #15 tablet PRN Reason: Pain Valacyclovir HCl [Valtrex] 1,000 mg PO TID 7 Days #20 tablet Comments: Your EKG, chest x-ray, blood tests are normal without any signs of heart or lung process. In particular no signs of heart attack or heart failure. Your pain appears to be coming from a developing shingles outbreak. We can treat this with Lashae acyclovir antiviral and Decadron steroid anti-inflammatory for the next 7 days to try to decrease the further progression and duration of the outbreak. We talked about the antiviral medicine being for 5 days but I looked it up and the recommended duration is 7 days. Add Tylenol 4 times a day regularly for the next several days to week for pain, or hydrocodone/acetaminophen if needed for worse pain. Meclizine every 6-8 hours if needed for vertigo/dizziness. I think this is unrelated and more related to inner ear process. I would anticipate this improving over the next few days as well. I transmitted your prescriptions to the pharmacy. I am prescribing a short course of narcotic pain medication for you. These are potentially dangerous and addictive medications that should be used carefully. These medications may constipate you. Take an iuqm-joh-ggzrwyr stool softener such as docusate twice daily with plenty of water while taking these medications. If you go 24 hours without a bowel movement, take kldo-ssm-eobygir MiraLAX, per package instructions. Do not drink or drive while taking these medications. If you received narcotic or sedating medications while in the emergency department do not drive for 24 hours. Store this medication in a safe, secure place and out of reach of children. It is a violation of federal law to give or sell this medication to another person or to use in a manner other than prescribed. The ED will not refill narcotic prescriptions, including prescriptions lost or stolen. You can dispose of unwanted medications at the [facility]'s office or at several pharmacies such as [facility]. Discharge Date/Time: 01/21/22 12:38
[2022-01-21 11:09] LABS: ALBUMIN 4.2 g/dL (3.2-5.5); ALBUMIN/GLOBULIN RATIO 1.4 (1.0-2.2); BILIRUBIN,TOTAL 0.8 mg/dL (0.2-1.0); CALCIUM 10.3 mg/dL (8.5-10.3); CREATININE 0.6 mg/dL (0.4-1.0); POTASSIUM 3.6 mmol/L (3.5-5.0); TOTAL PROTEIN 7.1 g/dL (6.7-8.2)
--- NOTE | 2022-01-21 11:12 | XRAY Report ---
PROCEDURE: Chest 1 View X-Ray INDICATIONS: Chest pain TECHNIQUE: One view of the chest was acquired. COMPARISON: None FINDINGS: Surgical changes and devices: None. Lungs and pleura: No pleural effusions or pneumothorax. Lungs are clear. Mediastinum: Mediastinal contours appear normal. Heart size is normal. Bones and chest wall: No suspicious bony lesions. Overlying soft tissues appear unremarkable. IMPRESSION: No evidence acute pulmonary process. Reviewed by: Bandar Pierre MD on 01/21/2022 10:11 AM [facility] Approved by: Bandar Pierre MD on 01/21/2022 10:11 AM [facility] Station ID: [id number]
[2022-01-21] MEDS ORDERED: MECLIZINE 12.5 MG TABLET PO STA (11:38)
[2022-01-21] MEDS ORDERED: valACYclovir 500 MG TABLET PO STA (11:38)
[2022-01-21] MEDS ORDERED: DEXAMETHASONE 10 MG/ML VIAL IVP STA (11:38)
[2022-01-21] MEDS ORDERED: KETOROLAC 15 MG/ML VIAL IVP STA (11:39)
[2022-01-21 12:35] VITALS: BP 99/79
== END 2022-01-21 12:38 | disposition home or self-care (01) ==
LOC: ED 10:30
DX: B02.9 Zoster without complications (principal); R07.89 Other chest pain; R42 Dizziness and giddiness; I10 Essential (primary) hypertension
CPT/HCPCS: 36415; 71045; 80053; 83690; 84484; 85025; 93005; 96374; 96375; 99284; A9270

== ENCOUNTER 2022-02-20 10:43 | Outpatient (CLI) | payer MEDICARE ==
[2022-02-20 18:24] LABS: CHOL/HDL RATIO 2.2 (<4.4); CHOLESTEROL 173 mg/dL; HDL CHOLESTEROL 80 mg/dL; LDL CHOLESTEROL,CALCULATED 77 mg/dL; TRIGLYCERIDES 82 mg/dL; VLDL CHOLESTEROL 16 mg/dL
== END 2022-02-20 10:44 | disposition home or self-care (01) ==
LOC: LAB.N 10:43
PROVIDERS: ATTEND Family Medicine
DX: E78.5 Hyperlipidemia, unspecified (principal)
CPT/HCPCS: 36415; 80061; 83721

== ENCOUNTER 2022-09-05 09:29 | Outpatient (CLI) | payer MEDICARE ==
[2022-09-05 12:25] LABS: ALBUMIN 4.3 g/dL (3.2-5.5); ALBUMIN/GLOBULIN RATIO 1.7 (1.0-2.2); ALKALINE PHOSPHATASE 78 IU/L (42-121); ALT ALANINE AMINOTRANSFERASE 23 IU/L (10-60); AST ASPARTATE AMINOTRANSFERASE 26 IU/L (10-42); BILIRUBIN,TOTAL 0.5 mg/dL (0.2-1.0); BUN - BLOOD UREA NITROGEN 21 mg/dL (6-20); CALCIUM 10.2 mg/dL (8.5-10.3); CARBON DIOXIDE - CO2 29 mmol/L (21-32); CHLORIDE 105 mmol/L (101-111); CHOL/HDL RATIO 2.6 (<4.4); CHOLESTEROL 214 mg/dL; CREATININE 0.7 mg/dL (0.4-1.0); GFR - MDRD 82 (>89); GLUCOSE 107 mg/dL (70-100); HDL CHOLESTEROL 82 mg/dL; LDL CHOLESTEROL,CALCULATED 118 mg/dL; LDL/HDL RATIO 1.4 (<4.4); POTASSIUM 3.9 mmol/L (3.5-5.0); SODIUM 139 mmol/L (135-145); TOTAL PROTEIN 6.8 g/dL (6.7-8.2); TRIGLYCERIDES 71 mg/dL; VLDL CHOLESTEROL 14 mg/dL
[2022-09-05 13:01] LABS: ESTIMATED AVERAGE GLUCOSE 114 mg/dL (70-100); HEMOGLOBIN A1c% 5.6 % (4.27-6.07)
== END 2022-09-05 09:30 | disposition home or self-care (01) ==
LOC: LAB.N 09:29
PROVIDERS: ATTEND Nurse Practitioner
DX: E78.5 Hyperlipidemia, unspecified (principal); R73.9 Hyperglycemia, unspecified
CPT/HCPCS: 36415; 80053; 80061; 83036; 83721

== ENCOUNTER 2022-09-14 13:37 | Outpatient (CLI) | payer MEDICARE ==
--- NOTE | 2022-09-15 10:18 | Mammography Report ---
BILATERAL DIGITAL SCREENING MAMMOGRAM 3D/2D: 09/14/2022 CLINICAL: Family history of breast cancer. Routine screening. Comparison is made to exams dated: 03/01/2021 mammogram, 10/13/2019 mammogram, 08/22/2018 mammogram, mammogram, 02/05/2015 mammogram, and 01/25/2015 mammogram - [facility]. Both breasts are heterogeneously dense, which may obscure small masses (category c / 51-75% glandular tissue). No significant masses, calcifications, or other findings are seen in either breast. There has been no significant interval change. IMPRESSION: NEGATIVE There is no mammographic evidence of malignancy. A 1 year screening mammogram is recommended. Based on the Tyrer Cuzick model (a risk assessment model) the patients lifetime risk is 11.8% and he r 10 year risk is 11.8%. According to the ACR, ACS, and NCCN guidelines, an annual breast MRI exam al oz with mammogram is recommended if the patients lifetime risk is 20% or greater. This exam was interpreted at Station ID: [id number]. NOTE: For mammograms, a report in lay terms will be sent to the patient. Approximately 15% of breast malignancies will not be visualized mammographically. In the management of a palpable breast mass, a negative mammogram must not discourage biopsy of a clinically suspicious lesion. Electronically Signed By: David orta/carlos:09/14/2022 22:20:43 ACR BI-RADS Category 1: Negative 3341F PARENCHYMAL PATTERN: (D) - The breast(s) demonstrate(s) heterogeneously dense fibroglandular madisyn sena. BI-RADS CATEGORY: (1) - 1 RECOMMENDATION: (ANNUAL) - Recommend routine annual screening mammography. [id number] 1 year screening LATERALITY: (B)
== END 2022-09-14 13:38 | disposition home or self-care (01) ==
LOC: DI.N 13:37
DX: Z12.31 Encounter for screening mammogram for malignant neoplasm of breast (principal); Z80.3 Family history of malignant neoplasm of breast

== ENCOUNTER 2022-12-18 14:11 | Outpatient (CLI) | payer MEDICARE ==
[2022-12-18 18:00] LABS: ALBUMIN 4.1 g/dL (3.2-5.5); ALBUMIN/GLOBULIN RATIO 1.5 (1.0-2.2); BILIRUBIN,TOTAL 0.4 mg/dL (0.2-1.0); CALCIUM 10.6 mg/dL (8.5-10.3); CREATININE 0.6 mg/dL (0.4-1.0); POTASSIUM 3.8 mmol/L (3.5-5.0); TOTAL PROTEIN 6.8 g/dL (6.7-8.2)
[2022-12-18 18:10] LABS: THYROID STIMULATING HORMONE 1.21 uIU/mL (0.34-5.60)
[2022-12-18 18:13] LABS: BASOPHILS # (AUTO) 0.1 10^3/uL (0.0-0.1); BASOPHILS % (AUTO) 0.8 %; EOSINOPHILS # (AUTO) 0.3 10^3/uL (0.0-0.7); EOSINOPHILS % (AUTO) 3.8 %; HGB - HEMOGLOBIN 14.5 g/dL (12.0-16.0); LYMPHOCYTES % (AUTO) 45.5 %; MEAN CORPUSCULAR HEMOGLOBIN 30.3 pg (27.0-31.0); MEAN CORPUSCULAR VOLUME 91.9 fL (81.0-99.0); MEAN PLATELET VOLUME 10.3 fL (7.9-10.8); MONOCYTES # (AUTO) 0.6 10^3/uL (0.0-1.0); MONOCYTES % (AUTO) 9.1 %; NEUTROPHILS # (AUTO) 2.7 10^3/uL (1.5-6.6); NEUTROPHILS % (AUTO) 40.6 %; PLT - PLATELET COUNT 251 10^3/uL (130-450); RED BLOOD COUNT 4.79 10^6/uL (4.20-5.40); RED CELL DISTRIBUTION WIDTH 14.3 % (12.0-15.0); WHITE BLOOD COUNT 6.6 x10^3/uL (4.8-10.8)
[2022-12-18 18:20] LABS: BILIRUBIN,URINE NEGATIVE (NEGATIVE); GLUCOSE, URINE (UA) NEGATIVE (NEGATIVE); KETONES,URINE (UA) NEGATIVE (NEGATIVE); LEUKOCYTE ESTERASE, URINE NEGATIVE (NEGATIVE); NITRITE,URINE NEGATIVE (NEGATIVE); OCCULT BLOOD,URINE NEGATIVE (NEGATIVE); PROTEIN,URINE NEGATIVE (NEGATIVE); UROBILINOGEN,URINE 0.2 (NORMAL) E.U./dL (NORMAL)
[2022-12-18 18:38] LABS: BACTERIA,URINE Few /HPF (None Seen); CLARITY,URINE HAZY (CLEAR); RBC,URINE 0-5 /HPF (0-5); SQUAMOUS EPITHELIAL CELL,UR FEW Squamous (<= Few); WBC,URINE 0-3 /HPF (0-5)
== END 2022-12-18 14:12 | disposition home or self-care (01) ==
LOC: LAB.N 14:11
PROVIDERS: ATTEND Nurse Practitioner
DX: R10.31 Right lower quadrant pain (principal); R10.2 Pelvic and perineal pain; R53.83 Other fatigue
CPT/HCPCS: 36415; 80053; 81001; 81003; 82150; 82607; 83690; 84443; 85025; 87086

== ENCOUNTER 2023-02-07 08:04 | Outpatient (CLI) | payer MEDICARE ==
--- NOTE | 2023-02-07 10:07 | Ultrasound Report ---
PROCEDURE: Pelvic w/Transvaginal INDICATIONS: PELVIC PAIN, RLQ PAIN TECHNIQUE: Real-time scanning was performed of the pelvic organs, with image documentation. Additional endovagi nal scanning was necessary due to incomplete visualization of the adnexal and endometrial structures by transabdominal scanning. COMPARISON: None. FINDINGS: Uterus: Uterus is anteverted and normal in size at 5.2 x 2.4 x 4.5 cm. The myometrium is heterogene ous. The endometrium is not visualized due to cervix calcification. Multiple subserosal uterine fibr oids, largest measuring 1.2 cm. Ovaries: The right ovary measures 1.5 x 2.2 x 1.2 cm, with a calculated ovarian volume of 2.1 cc. T he left ovary measures 1.3 x 1.7 x 1.0 cm, with a calculated ovarian volume of 1.2 cc. The ovaries h ave a normal sonographic appearance. Less than 12 follicles can be seen in each ovary. No adnexal m asses are seen. Other: No pathologic free abdominal or pelvic fluid. IMPRESSION: Multiple small subserosal uterine fibroids. Reviewed by: Cassius Romeo on 02/07/2023 10:06 AM PDT Approved by: Cassius Romeo on 02/07/2023 10:06 AM PDT Station ID: [id number]
--- NOTE | 2023-02-07 11:23 | Ultrasound Report ---
PROCEDURE: Pelvic Limited or F/U INDICATIONS: PELVIC PAIN, RLQ PAIN TECHNIQUE: Real-time transabdominal scanning was performed of the pelvic region of interest, with image document ation. COMPARISON: None. FINDINGS: No sonographic abnormalities or suspicious fluid collections in the right lower quadrant region of in terest. Imaging was technically challenging secondary to bowel gas. IMPRESSION: No sonographic finding to explain right lower quadrant pain. Reviewed by: Chrystal Kang MD on 02/07/2023 11:22 AM PDT Approved by: Chrystal Kang MD on 02/07/2023 11:22 AM PDT Station ID: [id number]
== END 2023-02-07 08:05 | disposition home or self-care (01) ==
LOC: DI 08:04
PROVIDERS: ATTEND Nurse Practitioner
DX: D25.2 Subserosal leiomyoma of uterus (principal); R10.31 Right lower quadrant pain

== ENCOUNTER 2023-04-11 08:00 | Outpatient (CLI) | payer MEDICARE ==
[2023-04-11 13:00] LABS: FECAL OCCULT BLOOD (FIT) NEGATIVE (NEGATIVE)
== END 2023-04-11 23:59 | disposition home or self-care (01) ==
LOC: LAB.R 08:00
PROVIDERS: ATTEND Nurse Practitioner
DX: N93.8 Other specified abnormal uterine and vaginal bleeding (principal)
CPT/HCPCS: 82274

== ENCOUNTER 2023-10-30 10:50 | Outpatient (CLI) | payer MEDICARE ==
--- NOTE | 2023-10-31 09:23 | Mammography Report ---
BILATERAL DIGITAL SCREENING MAMMOGRAM 3D/2D: 10/30/2023 CLINICAL: Routine screening. Family history of breast cancer. Comparison is made to exams dated: 09/14/2022 mammogram, 03/01/2021 mammogram, and 10/13/2019 mammogr am - [facility]. Both breasts are heterogeneously dense, which may obscure small masses (category c / 51-75% glandular tissue). No significant masses, calcifications, or other findings are seen in either breast. There has been no significant interval change. IMPRESSION: NEGATIVE There is no mammographic evidence of malignancy. A 1 year screening mammogram is recommended. Based on the Tyrer Cuzick model (a risk assessment model) the patients lifetime risk is 10.8% and he r 10 year risk is 0.0%. According to the ACR, ACS, and NCCN guidelines, an annual breast MRI exam manuel ng with mammogram is recommended if the patients lifetime risk is 20% or greater. This exam was interpreted at Station ID: [id number]. NOTE: For mammograms, a report in lay terms will be sent to the patient. Approximately 15% of breast malignancies will not be visualized mammographically. In the management of a palpable breast mass, a negative mammogram must not discourage biopsy of a clinically suspicious lesion. Electronically Signed By: Ko conrad/carlos:10/30/2023 13:10:55 letter sent: No_Letter ACR BI-RADS Category 1: Negative 3341F PARENCHYMAL PATTERN: (D) - The breast(s) demonstrate(s) heterogeneously dense fibroglandular madisyn sena. BI-RADS CATEGORY: (1) - 1 Mammogram [id number] 1 year screening LATERALITY: (B)
== END 2023-10-30 10:51 | disposition home or self-care (01) ==
LOC: DI.N 10:50
DX: Z12.31 Encounter for screening mammogram for malignant neoplasm of breast (principal); R92.333 Mammographic heterogeneous density, bilateral breasts; Z80.3 Family history of malignant neoplasm of breast

== ENCOUNTER 2023-11-26 09:24 | Outpatient (CLI) | payer MEDICARE ==
[2023-11-26 12:36] LABS: BASOPHILS # (AUTO) 0.1 10^3/uL (0.0-0.1); BASOPHILS % (AUTO) 0.7 %; EOSINOPHILS # (AUTO) 0.5 10^3/uL (0.0-0.7); EOSINOPHILS % (AUTO) 6.4 %; HCT - HEMATOCRIT 45.7 % (37.0-47.0); HGB - HEMOGLOBIN 14.9 g/dL (12.0-16.0); LYMPHOCYTES # (AUTO) 4.2 10^3/uL (1.5-3.5); LYMPHOCYTES % (AUTO) 58.9 %; MEAN CORPUSCULAR HGB CONC 32.6 g/dL (32.0-36.0); MEAN PLATELET VOLUME 10.3 fL (7.9-10.8); MONOCYTES # (AUTO) 0.5 10^3/uL (0.0-1.0); MONOCYTES % (AUTO) 6.5 %; NEUTROPHILS # (AUTO) 1.9 10^3/uL (1.5-6.6); NEUTROPHILS % (AUTO) 27.4 %; PLT - PLATELET COUNT 259 10^3/uL (130-450); RED BLOOD COUNT 4.97 10^6/uL (4.20-5.40); RED CELL DISTRIBUTION WIDTH 14.1 % (12.0-15.0)
[2023-11-26 12:58] LABS: ALBUMIN 4.3 g/dL (3.2-5.5); ALKALINE PHOSPHATASE 88 IU/L (42-121); ALT ALANINE AMINOTRANSFERASE 16 IU/L (10-60); AST ASPARTATE AMINOTRANSFERASE 16 IU/L (10-42); BILIRUBIN,TOTAL 0.5 mg/dL (0.2-1.0); BUN - BLOOD UREA NITROGEN 17 mg/dL (6-20); CALCIUM 10.1 mg/dL (8.5-10.3); CARBON DIOXIDE - CO2 33 mmol/L (21-32); CHLORIDE 105 mmol/L (101-111); CHOL/HDL RATIO 2.6 (<4.4); CHOLESTEROL 188 mg/dL; CREATININE 0.7 mg/dL (0.6-1.3); GFR - MDRD 81 (>89); GLUCOSE 106 mg/dL (74-104); HDL CHOLESTEROL 72 mg/dL; LDL CHOLESTEROL,CALCULATED 102 mg/dL; LDL/HDL RATIO 1.4 (<4.4); POTASSIUM 3.8 mmol/L (3.5-4.5); SODIUM 142 mmol/L (135-145); TOTAL PROTEIN 6.5 g/dL (6.4-8.9); TRIGLYCERIDES 71 mg/dL (48-352); VLDL CHOLESTEROL 14 mg/dL
[2023-11-26 13:06] LABS: THYROID STIMULATING HORMONE 1.99 uIU/mL (0.34-5.60)
== END 2023-11-26 09:25 | disposition home or self-care (01) ==
LOC: LAB.N 09:24
PROVIDERS: ATTEND Nurse Practitioner
DX: I10 Essential (primary) hypertension (principal); D64.9 Anemia, unspecified; E78.5 Hyperlipidemia, unspecified
CPT/HCPCS: 36415; 80053; 80061; 83721; 84443; 85025

== ENCOUNTER 2024-01-15 10:47 | Outpatient (CLI) | payer MEDICARE ==
--- NOTE | 2024-01-15 11:27 | CARDIAC PROCEDURE NOTE ---
Stress Test Report Service Date: 01/15/24 Service Time: 11:00 Ordering Provider: Ermelinda Vega ARNP Indication for Test: Assess progressive decline in exertional tolerance. Significant Medical History: Eunice Sarabia is referred for a treadmill stress echocardiogram today, to assess gradual worsening of exertional tolerance over the past several months. She has a significant cardiovascular history, including treatment for hypertension, that currently includes losartan, HCTZ and metoprolol, the latter added, she says, for palpitations and heart racing, with improvement in symptoms and BP after initiation of this medication (last dose prior to this test was about 44 hours ago). She tells me that a number of years ago she had what sounds like an MRI that showed an abnormal cerebral vessel (her clinic problem list refers to vertebral artery disease). She has been participating in low-impact exercise at her senior center, with some increasing difficulty in completing the routine. This includes response to exercise, with losing her stamina and feeling like her legs are "turning to cement". This sensation is bilateral and resolves immediately upon resting; she also notes at times the feeling of a vibratory sensation in her left thigh. She has intermittent and brief (no more than 15 seconds in duration) episodes of sharp, cramping chest pain, mostly at night, occasionally with exertion, as well as episodes of heart racing/palpitations at night. She becomes somewhat short of breath with exercise, but this does not appear to be her limiting concern. Cardiac Risk Factors: Positive for hypertension treated for 11 years, most recently with 3 medications, hyperlipidemia on rosuvastatin (recent lipids TChol 188, LDLc 102, HDLc 72, TG 71), family history of CAD with [place] in both parents in their elder y ears and "pre-diabetes"; no history of tobacco smoking. Type of Stress Test: ETT with Echocardiography Procedure: -Exercise Treadmill Test- After signing informed consent, the patient underwent echo imaging at rest and then performed treadmill exercise using a Modified Salvatore protocol. The patient exercised for 10 minutes 19 seconds and achieved a peak heart rate of 135 (93 percent predicted maximum heart rate for age), and an estimated workload of 6.2 METS. The test was terminated due to bilateral upper leg/thigh discomfort. Resting heart rate: 80 Peak heart rate: 135 Normal response to exercise. Resting BP: 131/67 Peak BP: 187/68 Normal BP response to exercise. Room air oxygen saturation remained 95-97%. Rhythm during exercise: Sinus rhythm throughout, without observed atrial or ventricular ectopy. Symptoms: As above, leg discomfort became limiting, with mildly increased shortness of breath; there was no description of any chest pressure/pain/discomfort. EKG at rest showed normal sinus rhythm with left anterior fascicular block and incomplete right bundle branch block pattern, with <0.[address] depression in some leads. EKG at peak stress showed J-point depression with upsloping ST depression NOT meeting EKG diagnostic criteria for ischemia. In Recovery HR and BP rapidly/normally decreased towards resting levels (HR 98, BP 145/70 at 4:00). Echo imaging, performed at rest and with stress, will be reported separately. IJaved MD, was present throughout this treadmill stress study and supervised it in its entirety. Summary: 1) Exercise tolerance likely about average for age as evidenced by FRANCESCA of ~5-10% when imputed for the standard Salvatore protocol. 2) Abnormal resting EKG. 3) Adequate level of exercise was achieved on this treadmill stress test. 4) Normal BP response to exercise. 5) No ischemic changes by EKG criteria were seen at peak stress. 6) Echo image interpretation reveals normal left ventricular size, wall thickness and systolic function, with appropriate hyperdynamic augmentation of all segments with exercise, indicating no evidence of prior infarct or inducible ischemia. No significant valvular abnormality or elevation of estimated pulmonary artery systolic pressure seen on screening study. See separate report for more details. Conclusions and Recommendations: 1) Overall the treadmill stress echocardiogram results today are reassuring with regard to the possibility of coronary heart disease, given no report of anginal- type symptoms, as well as no EKG or echocardiographic evidence of inducible ischemia. 2) She did experience limiting bilateral thigh discomfort, with rapid resolution at rest. It is unclear what this represents. Given the chart entry of vertebral artery disease it is conceivable that it indicates distal aorta- iliofemoral peripheral artery disease (e.g. Leriche syndrome). This could be assessed further with formal anklebrachial blood pressure index, as well as with carotid duplex imaging. She also tells me that at times she would like to assist herself in arising from a seated position, though this has been discouraged at her senior center, in order to maintain muscle tone. This raises the possibility of whether some proximal muscle weakness could be at play here.
== END 2024-01-15 10:48 | disposition home or self-care (01) ==
LOC: DI 10:47
PROVIDERS: ATTEND Nurse Practitioner
DX: R06.09 Other forms of dyspnea (principal); I10 Essential (primary) hypertension; E78.5 Hyperlipidemia, unspecified; Z82.49 Family history of ischemic heart disease and other diseases of the circulatory system
CPT/HCPCS: 93350

== ENCOUNTER 2024-03-11 08:43 | Outpatient (CLI) | payer MEDICARE ==
[2024-03-11 09:17] LABS: CREATININE 0.7 mg/dL (0.6-1.3)
--- NOTE | 2024-03-11 12:42 | MRI Report ---
PROCEDURE: Angio Neck W/WO INDICATIONS: VISION CHANGES, CADN CONTRAST: 15.4ml Clariscan TECHNIQUE: Axial and sagittal balanced GE through the neck. 2-D [id number] imaging was performed in the axia l plane through the neck, with reconstructed images. Coronal dynamic MRA after the administration of contrast in the arterial and venous phases, with rotating 3-dimensional maximum intensity projection (MIP) reformats constructed from subtraction images. COMPARISON: Correlation is made with the accompanying imaging. FINDINGS: Image quality: Excellent. Carotid system: Great vessels demonstrate a conventional anatomy as they arise from the aortic arch. The origins of the common carotid arteries appear normal. The calibers and courses of the common c arotid arteries are likewise normal. The carotid bifurcations appear normal bilaterally. The web design intern al carotid arteries are widely patent up to the [place]. The internal carotid arteries demon strate tortuosity, right worse than left. Posterior circulation: There is approximately 50% narrowing seen involving the origins of each verteb ral artery. The more superior portions of the vertebral arteries demonstrate normal course and calibe r. Vertebral arteries join to form a normal appearing basilar artery. Miscellaneous: Subclavian arteries are patent throughout. Pre-contrast images through the neck demo nstrate no soft tissue abnormalities. IMPRESSION: Approximately 50% narrowing seen involving the origins of the vertebral arteries. No hemodynamically significant stenosis can be seen of the carotid arteries. Note is made of internal carotid artery tortuosity, right worse than left. Reviewed by: Marcos Acharya MD on 03/11/2024 11:40 AM [facility] Approved by: Marcos Acharya MD on 03/11/2024 11:40 AM [facility] Station ID: [id number]
--- NOTE | 2024-03-11 12:43 | MRI Report ---
PROCEDURE: Angio Head WO INDICATIONS: VISION CHANGES, CAD TECHNIQUE: Noncontrast axial 3-D [id number] MR angiogram, with 3-dimensional maximum intensity projection (M IP) reformats of the internal carotid arteries and posterior circulation then performed. COMPARISON: Correlation is made with the accompanying imaging. FINDINGS: Image quality: Diagnostic. Anterior circulation: Intracranial internal carotid arteries demonstrate normal size and intralumina l flow signal. The flow within the paired anterior cerebral arteries is normal and symmetric. The f low within the middle cerebral arteries is normal and symmetric. The anterior communicating artery i s seen. No stenoses, occlusions, or aneurysms. Posterior circulation: The right V4 segment is within normal limits. The left V4 segment and largely terminates in the right posterior inferior cerebellar artery. There is a normal appearing basilar ar gume. There is a type origin of the right posterior cerebral artery. The flow within the heating mechanic ior cerebral arteries is normal and symmetric. No stenoses, occlusions, or aneurysms. IMPRESSION: No significant intracranial arterial abnormality is seen. [place] developmental anomalies are incidentally noted, which are not considered to be clini lizzeth significant. Reviewed by: Marcos Acharya MD on 03/11/2024 11:42 AM [facility] Approved by: Marcos Acharya MD on 03/11/2024 11:42 AM [facility] Station ID: [id number]
--- NOTE | 2024-03-11 12:45 | MRI Report ---
PROCEDURE: Brain W/WO INDICATIONS: VISION CHANGES, CAD CONTRAST: 15.4ml Clariscan TECHNIQUE: Noncontrast axial T1 spin echo, axial T2 fast spin echo, sagittal and axial FLAIR, coronal T2 fast sp in echo, axial gradient echo, axial diffusion and ADC through the brain. After the administration of contrast, axial and coronal T1 spin echo with fat saturation through the brain. COMPARISON: Prior brain MRI, 04/29/2014. Correlation is also made with prior head CT, 04/16/2018. Heather elation is made with the accompanying imaging. FINDINGS: Image quality: Excellent. CSF spaces: Basal cisterns are patent. No extra-axial fluid collections. Ventricles are normal in size and shape. Brain: No midline shift. No intracranial bleeds or masses. No abnormal intracranial enhancement. There is cerebral volume loss for age. There is periventricular white matter chronic small vessel is chemic change. The brainstem appears normal. Diffusion-weighted images demonstrate no acute ischemi c insults. No chronic ischemic insults. Normal intravascular flow voids are present. Skull and face: Calvarial marrow is normal in signal. Orbits appear normal. Incidental note is ma de of bilateral lens replacements. Sinuses: Sinuses and mastoids appear clear. IMPRESSION: No imaging explanation is found for the patient's presenting symptoms. No findings of acute or subacute infarction are seen. No prior territorial infarction can be seen. Age-appropriate brain parenchymal volume loss and chronic small vessel ischemic change can be seen. To the limits of this standard protocol study, no significant orbital abnormality is seen. Reviewed by: Marcos Acharya MD on 03/11/2024 11:44 AM JOHNSON Approved by: Marcos Acharya MD on 03/11/2024 11:44 AM JOHNSON Station ID: [id number]
[2024-03-11] MEDS: GADOTERATE MEGLUMINE 10 MMOL/20 ML VIAL IVP ONE (18:06)
== END 2024-03-11 08:44 | disposition home or self-care (01) ==
LOC: LAB 08:43
PROVIDERS: ATTEND Nurse Practitioner
DX: H53.9 Unspecified visual disturbance (principal); I65.03 Occlusion and stenosis of bilateral vertebral arteries; I77.9 Disorder of arteries and arterioles, unspecified; I77.1 Stricture of artery; G31.89 Other specified degenerative diseases of nervous system; I67.82 Cerebral ischemia
CPT/HCPCS: 36415; 82565

== ENCOUNTER 2024-06-24 14:10 | Outpatient (CLI) | payer MEDICARE ==
--- NOTE | 2024-06-24 17:47 | DEXA Report ---
PROCEDURE: Dexa Spine and/or Hip INDICATIONS: POSTMENOPAUSAL TECHNIQUE: Dual energy x-ray absorptiometry (DXA) was performed on a [employer] System. Regions measur ed are the AP Spine, femoral neck, and if needed forearm. COMPARISON: None FINDINGS: Lumbar Spine: Bone Mineral Density: 1.28 g/cm/cm,T score: 0.8. Left Femoral Neck: Bone Mineral Density: 0.70 g/cm/cm, T score: -2.4. Left Hip: Bone Mineral Density: 0.87 g/cm/cm,T score: -1.1. FRAX risk factors: None given. 10 year risk of major osteoporotic fracture: 16.9%% major osteoporotic fracture = hip, clinical vertebral, proximal humerus, distal forearm 10 year risk of hip fracture: 5.4% (T score greater or equal to -1.0: NORMAL) (T score from -1.1 to -2.4: OSTEOPENIA) (T score less than or equal to -2.5 to: OSTEOPOROSIS) Impression: By WHO criteria, this patient has low bone density (osteopenia). FRAX risk % as above. Patients with diagnosis of osteoporosis or osteopenia should have regular bone mineral density assess ment. For those eligible for Medicare, routine testing is allowed once every 2 years. Testing frequ ency can be increased for patients who have rapidly progressing disease or for those who are receivin g medical therapy to restore bone mass. Reviewed by: Chacorta Thomas MD on 06/24/2024 5:46 PM PDT Approved by: Chacorta Thomas MD on 06/24/2024 5:46 PM PDT Station ID: [id number]
== END 2024-06-24 14:11 | disposition home or self-care (01) ==
LOC: DI 14:10
PROVIDERS: ATTEND Nurse Practitioner
DX: M85.89 Other specified disorders of bone density and structure, multiple sites (principal); Z78.0 Asymptomatic menopausal state